=== PATIENT | female | born 1995 | race Caucasian/White ===

== ENCOUNTER 2018-09-06 18:13 | Emergency (ER) | payer OTHER ==
[2018-09-06] MEDS ORDERED: ONDANSETRON 4 MG/2 ML VIAL ONE (18:54)
--- NOTE | 2018-09-06 19:01 | EDPHY ---
General Time Seen by Provider: 09/06/18 19:01 Narrative: CLINICAL IMPRESSION: Generalized abdominal pain nausea and diarrhea ASSESSMENT/PLAN: Patient is a 22-year-old female with a history of IBS who presents to the emergency department with generalized abdominal pain, nausea and diarrhea. Patient is afebrile, she is uncomfortable appearing however not toxic- appearing. Her abdomen was soft, distended with diffuse, nonfocal tenderness to palpation, no peritoneal signs or evidence of a surgical abdomen. CBC revealed a mild leukocytosis of 12,000, I suspect this is reactive to GI illness. Her vital signs were reviewed and there was no evidence of sepsis or serious bacterial illness. BMP grossly unremarkable. Lipase and hepatic panel grossly unremarkable without evidence of acute pancreatitis or acute hepatobiliary obstruction. UA 3 RBCs, no evidence of infection. I suspect the patient's symptoms are secondary to viral illness, she had improvement of her symptoms with fluids and antiemetic. She declined any need for pain medication. Her abdomen was diffusely tender, I have a low suspicion for other etiologies such as appendicitis, cholecystitis, pancreatitis, pyelonephritis, perforated viscus, mesenteric ischemia, or additional emergent intra-abdominal process. negative, rules out ectopic . She had no pelvic complaints to suggest TOA, PID or ovarian torsion. The patient was noted to have few RBCs in her urine, she has no urinary symptoms and she has no flank pain, I have a very low suspicion for kidney stone as the etiology of her symptoms. On repeat examination the patient is more comfortable appearing, her abdomen is soft with diffuse nonfocal tenderness to palpation, no evidence of a surgical abdomen. We discussed CT for further examination of her abdominal pain however patient refuses at this time. The patient is currently a student at the [employer] and utilizes [employer], I discussed the importance of close follow-up. Conservative return precautions were discussed- she will return for development of fever, persistent nausea and vomiting, signs of dehydration, worsening or localizing abdominal pain or for any other concerning symptom. The patient verbalized understanding and she is in agreement with this plan. DIFFERENTIAL DX: Abdominal pain in a female including but not limited to ovarian cyst, pelvic inflammatory disease, ovarian torsion, urinary tract infection, and appendicitis. ED COURSE: CHIEF COMPLAINT: Generalized abdominal pain, nausea, diarrhea HPI: Patient is a 22-year-old female with a history of IBS who presents to the emergency department with generalized abdominal pain, nausea, diarrhea and generally feeling unwell. Patient reports she woke up this morning feeling fine , had a quesadilla with some ranch dressing on it and shortly thereafter felt nauseous, felt like she needed to vomit with generalized abdominal pain. Patient reports the pain waxes and wanes in intensity, there are periods of time where she has no pain. She has intense urge to vomit however she is unable to. She feels that the ranch dressing that she ate was bad. She denies any recent illness or fever, she has felt chills though. Patient reports alcohol use last evening, very little intake today other than previously mentioned. She feels that she is dehydrated. Patient denies any urinary symptoms to include dysuria, hematuria and frequency. She is not sexually active, last menstrual period was 2 weeks ago and normal. She denies any pelvic pain, vaginal pain, vaginal bleeding or vaginal discharge. Patient had a loose stool this morning, not unusual for her IBS. Denies any further diarrhea and no issues with constipation. No melena or hematochezia. PMH: IBS Pertinent Past Surgical History: Denies Family History: Noncontributory Social History: Denies illicit drug use or smoking REVIEW OF SYSTEMS: All other systems negative Constitutional: Chills, denies fever. Eyes: No discharge, vision change ENT: No sore throat, congestion, ear pain. Cardiovascular: No chest pain, no palpitations. Respiratory: No cough, no shortness of breath. Gastrointestinal: Abdominal pain, nausea, diarrhea. Genitourinary: No hematuria, dysuria, flank pain, pelvic pain Musculoskeletal: No back pain, joint swelling, joint pain, myalgias. Skin: No rashes, color change. Neurological: No headache, dizziness, weakness. PHYSICAL EXAM: General Appearance: Well-developed, very uncomfortable appearing however not toxic-appearing HENT: Normocephalic, atraumatic. Bilateral external ears are normal. Bilateral tympanic membranes are normal with pearly keller reflex. Nares are clear, mucosa is pink. Oropharynx is clear however mucosa is very dry, uvula is midline. There is no tonsillar enlargement or exudate. The dentition is normal. Eyes: PERRLA, EOMI intact. Conjunctiva pink, no pallor or injection Neck: Supple, nontender, no lymphadenopathy, no midline pain, FROM, no meningismus. Respiratory: There are no retractions, lungs are clear to auscultation. Cardiac: Regular rate and rhythm, no murmurs or gallops. Gastrointestinal: Abdomen is soft, bowel sounds normal; abdomen is mildly distended, she has diffuse nonfocal abdominal tenderness to palpation. There is no rigidity, she has no guarding. Negative Weber sign, negative McBurney's point tenderness and negative Rovsing's. No masses/hernia. Neurological: Alert and oriented x 3, CN 2-12 grossly intact, normal gait no ataxia, DTR's intact, normal sensation and strength Skin: Warm, dry, no rashes, no nodules on palpation. Musculoskeletal: Extremities are symmetrical, full range of motion, no tenderness, deformity, swelling, or erythema. Psychiatric: Patient is oriented X 3, there is no agitation. MEDICAL DECISION MAKING: Patient was seen independently. Secondary supervising physician at time of evaluation was Dr. Villalobos, he did not evaluate this patient. Diagnosis: Generalized abdominal pain, nausea, diarrhea. New, requires workup Summary: See Assessment and Plan for summary of ED visit Clinical lab tests: ordered / reviewed. Independent visualization of images, tracing, or specimens: No. Decision to obtain medical records or history from someone other than the patient: No Review / Summarize previous medical records: None available Discussed patient with another provider: Yes Patient Progress: Stable, discharge. - History Smoking Status: Never smoked - Objective Vital Signs: Initial Vital Signs Temperature (C) 36.3 C 09/06/18 18:21 Heart Rate 84 09/06/18 18:21 Respiratory Rate 16 09/06/18 18:21 Blood Pressure 111/76 09/06/18 18:21 O2 Sat (%) 95 09/06/18 18:21 O2 Delivery Mode Room Air Allergies/Adverse Reactions: No Known Allergies Allergy (Unverified 09/06/18 18:25) Home Medications: Medication Instructions Recorded NK [No Known Home Meds] 09/06/18 Laboratory Results: Laboratory Results 09/06/18 19:00 09/06/18 19:00 09/06/18 09/06/18 09/06/18 21:00 20:05 19:00 WBC RBC Hgb Hct MCV MCH MCHC RDW Plt Count MPV Neut % (Auto) Lymph % (Auto) Donley % (Auto) Eos % (Auto) Baso % (Auto) Nucleat RBC Rel Count Absolute Neuts (auto) Absolute Lymphs (auto) Absolute Monos (auto) Absolute Eos (auto) Absolute Basos (auto) Absolute Nucleated RBC Immature Gran % Immature Gran # Sodium Potassium Chloride Carbon Dioxide Anion Gap BUN Creatinine Estimated GFR Glucose Calcium Total Bilirubin Conjugated Bilirubin Unconjugated Bilirubin AST ALT Alkaline Phosphatase Total Protein Albumin Lipase Beta HCG, Qual NEGATIVE Urine Color YELLOW YELLOW Urine Appearance CLEAR CLEAR Urine pH 5.0 5.0 (5.0-7.5) (5.0-7.5) Ur Specific [place] 1.019 1.021 (1.002-1.030) (1.002-1.030) Urine Protein NEGATIVE NEGATIVE (NEGATIVE) (NEGATIVE) Urine Ketones 2+ H 1+ H (NEGATIVE) (NEGATIVE) Urine Blood 2+ H 1+ H (NEGATIVE) (NEGATIVE) Urine Nitrate NEGATIVE NEGATIVE (NEGATIVE) (NEGATIVE) Urine Bilirubin NEGATIVE NEGATIVE (NEGATIVE) (NEGATIVE) Urine Urobilinogen NEGATIVE EU EU NEGATIVE EU EU (0.2-1.0) (0.2-1.0) Ur Leukocyte Esterase NEGATIVE NEGATIVE (NEGATIVE) (NEGATIVE) Urine RBC 3-5 /hpf H /hpf 10-15 /hpf H /hpf (0-3) (0-3) Urine WBC 0-1 /hpf /hpf 1-3 /hpf /hpf (0-3) (0-3) Ur Epithelial Cells TRACE /lpf /lpf TRACE /lpf /lpf (NONE-1+) (NONE-1+) Urine Mucus TRACE /lpf /lpf TRACE /lpf /lpf (NONE-1+) (NONE-1+) Urine Glucose NEGATIVE NEGATIVE (NEGATIVE) (NEGATIVE) 09/06/18 09/06/18 19:00 19:00 WBC 12.61 10^3/uL H 10^3/uL (3.80-9.50) RBC 5.39 10^6/uL H 10^6/uL (4.18-5.33) Hgb 16.1 g/dL g/dL (12.6-16.3) Hct 47.5 % H % (38.0-47.0) MCV 88.1 fL fL (81.5-99.8) MCH 29.9 pg pg (27.9-34.1) MCHC 33.9 g/dL g/dL (32.4-36.7) RDW 12.5 % % (11.5-15.2) Plt Count 302 10^3/uL 10^3/uL (150-400) MPV 9.4 fL fL (8.7-11.7) Neut % (Auto) 86.1 % H % (39.3-74.2) Lymph % (Auto) 6.7 % L % (15.0-45.0) Donley % (Auto) 6.1 % % (4.5-13.0) Eos % (Auto) 0.6 % % (0.6-7.6) Baso % (Auto) 0.3 % % (0.3-1.7) Nucleat RBC Rel Count 0.0 % % (0.0-0.2) Absolute Neuts (auto) 10.85 10^3/uL H 10^3/uL (1.70-6.50) Absolute Lymphs (auto) 0.85 10^3/uL L 10^3/uL (1.00-3.00) Absolute Monos (auto) 0.77 10^3/uL 10^3/uL (0.30-0.80) Absolute Eos (auto) 0.07 10^3/uL 10^3/uL (0.03-0.40) Absolute Basos (auto) 0.04 10^3/uL 10^3/uL (0.02-0.10) Absolute Nucleated RBC 0.00 10^3/uL 10^3/uL (0-0.01) Immature Gran % 0.2 % % (0.0-1.1) Immature Gran # 0.03 10^3/uL 10^3/uL (0.00-0.10) Sodium 139 mEq/L mEq/L (135-145) Potassium 4.0 mEq/L mEq/L (3.5-5.2) Chloride 105 mEq/L mEq/L (97-110) Carbon Dioxide 23 mEq/l mEq/l (22-31) Anion Gap 11 mEq/L mEq/L (6-14) BUN 11 mg/dL mg/dL (7-23) Creatinine 0.8 mg/dL mg/dL (0.6-1.0) Estimated GFR > 60 Glucose 82 mg/dL mg/dL (70-100) Calcium 9.8 mg/dL mg/dL (8.5-10.4) Total Bilirubin 1.3 mg/dL mg/dL (0.1-1.4) Conjugated Bilirubin 0.4 mg/dL mg/dL (0.0-0.5) Unconjugated Bilirubin 0.9 mg/dL mg/dL (0.0-1.1) AST 28 IU/L IU/L (14-46) ALT 24 IU/L IU/L (9-52) Alkaline Phosphatase 64 IU/L IU/L (38-126) Total Protein 8.3 g/dL H g/dL (6.3-8.2) Albumin 5.1 g/dL H g/dL (3.5-5.0) Lipase 43 IU/L IU/L (23-300) Beta HCG, Qual Urine Color Urine Appearance Urine pH Ur Specific [place] Urine Protein Urine Ketones Urine Blood Urine Nitrate Urine Bilirubin Urine Urobilinogen Ur Leukocyte Esterase Urine RBC Urine WBC Ur Epithelial Cells Urine Mucus Urine Glucose Medications Given: Discontinued Medications Sodium Chloride (Ns) 1,000 mls @ 0 mls/hr IV ONCE ONE PRN Reason: Wide Open Stop: 09/06/18 19:10 Last Admin: 09/06/18 19:10 Dose: 1,000 mls Ondansetron HCl (Zofran) 4 mg IVP Q4 PRN PRN Reason: Nausea/Vomiting, Can't Take PO Stop: 03/05/19 19:08 Last Admin: 09/06/18 21:05 Dose: 4 mg Ondansetron HCl (Zofran Odt 4 Mg Prepack#2) 1 btl TAKEHOME EDNOW ONE Stop: 09/06/18 20:11 Last Admin: 09/06/18 21:46 Dose: 1 btl Departure - Departure Disposition: Home, Routine, Self-Care Clinical Impression: Abdominal pain Qualifiers: Abdominal location: generalized Qualified Code(s): R10.84 - Generalized abdominal pain Nausea & vomiting Qualifiers: Vomiting type: unspecified Vomiting Intractability: non-intractable Qualified Code(s): R11.2 - Nausea with vomiting, unspecified Diarrhea Qualifiers: Diarrhea type: unspecified type Qualified Code(s): R19.7 - Diarrhea, unspecified Condition: Good Instructions: Ondansetron (By mouth), Abdominal Pain (ED) Additional Instructions: DISCHARGE INSTRUCTIONS FROM YOUR DOCTOR Thank you for visiting our emergency department today. Please keep in mind that discharge from the emergency department does not mean that there is nothing wrong - it simply means that we have not identified an emergency condition that requires further evaluation or treatment in the hospital. You should always plan to follow up with primary care for re-evaluation of your condition in the next 2-3 days. Rest, push non-diuretic, non-caffeinated fluids, clear liquid diet, then a BRAT diet (bananas, rice, applesauce, toast), then slowly advance diet to normal. Attempt small frequent meals. Zofran as prescribed as needed for any recurrent nausea and/or vomiting. Schedule a follow-up appointment with your primary care physician in the next 1- 2 days for re-evaluation. Bring a copy of your test results with you to that appointment. For pain control: You may take Tylenol, I recommend 500-1000 mg every 6-8 hours as needed. Take with food and a full glass of water. Stop taking if this is upsetting her stomach. Do not exceed 4000 mg in a 24 hr period. You may also take ibuprofen, recommend 400 mg every 6 hr. Take with food and a full glass of water. Stop taking if this upsets her stomach. Do not exceed 2400 mg in a 24 hr period. Return for increased or unmanageable pain, new site or character of pain, flank pain, groin pain, pelvic pain, development of fever, chills, recurrent vomiting , vomiting blood or coffee grounds, diarrhea, constipation, bloody stools, black tarry stools, burning or pain with urination, bloody urine, inability to urinate, decreased urine output or other signs of dehydration, dizziness, weakness, fainting, difficulty breathing or swallowing, chest pain, or for any other new, worsening or worrisome symptoms. People present with illnesses and injuries in different ways, and it is always possible that we have missed something. You may always return for re-evaluation if symptoms worsen or if they are not improving or if you develop new/different symptoms. Again, thank you for choosing our emergency department. We hope that you feel better. Referrals: NONE *PRIMARY CARE P,. [Primary Care Provider] - As per Instructions Trisha Beckwith MD [Medical Doctor] - As per Instructions (If you do not have a primary care provider, please call to establish care.)
[2018-09-06] MEDS ORDERED: NS 1,000 ML IV ONE (19:09)
[2018-09-06] MEDS: ONDANSETRON 4 MG/2 ML VIAL IVP PRN ×2 (19:10→21:05)
[2018-09-06 19:17] LABS: PLATELET COUNT 302 10^3/uL (150-400)
[2018-09-06] MEDS ORDERED: ONDANSETRON 4MG PREPACK#2 BTL TAKEHOME ONE (20:10)
[2018-09-06 21:08] VITALS: BP 110/65
== END 2018-09-06 21:49 | disposition home or self-care (01) ==
DX: R10.84 Generalized abdominal pain (principal); R11.0 Nausea; R19.7 Diarrhea, unspecified; K58.9 Irritable bowel syndrome, unspecified
CPT/HCPCS: 96374; J2405